=== PATIENT | female | born 1985 | race Caucasian/White ===

== ENCOUNTER 2018-02-06 09:28 | Inpatient (IN) | payer OTHER ==
[2018-02-06] VITALS (11 sets, daily range): BP systolic 109–137; BP diastolic 60–77; PULSE 80–105; TEMP 98–98.4
[~2018-02-06] VITALS: Ht 165.1 cm; Wt 76.8 kg
[~2018-02-06 09:28] MED LIST: NO HOME MEDICATIONS
[2018-02-06] MEDS ORDERED: PRENATAL (09:40)
[2018-02-06 10:14] LABS: BASO # 0.1 (0.0-0.2); BASO % 0.3 % (0.0-2.0); EOS % 0.2 % (0-4.0); GRAN # 16.7 (1.4-6.5); GRAN % 86.7 % (42.2-75.2); LYMPH # 1.7 (1.2-3.4); LYMPH % 8.7 % (20.0-51.0); MEAN CELL VOLUME 88 fl (80.0-100.0); MEAN CORPUSCULAR HEMOGLOBIN 29 pg (27.0-31.0); MEAN CORPUSCULAR HGB CONC 32 g/dl (33.0-37.0); MEAN PLATELET VOLUME 10.6 fl (7.4-10.4); MONO # 0.7 (0.1-0.6); MONO % 3.6 % (1.7-9.3); PLATELET COUNT 258 K/mm3 (130-400); RED BLOOD COUNT 3.85 M/mm3 (4.10-5.30); REDCELL DISTRIBUTION WIDTH-CV 13.7 % (11.5-14.5)
[2018-02-06 10:30] LABS: TRICYCLIC ANTIDEPRESS URINE NEGATIVE
[2018-02-07 08:20] VITALS: BP 123/71; PULSE 65; TEMP 98.1
[2018-02-07 08:38] VITALS: BP 123/71; PULSE 65; TEMP 98.1
[2018-02-07] MEDS ORDERED: IBU600 MG PO (09:23)
[2018-02-07 13:01] VITALS: BP 125/83; PULSE 75; TEMP 98.5
== END 2018-02-07 14:40 | disposition home or self-care (01) | DRG 807 ==
LOC: LDRO 09:28 → OB 09:41
PROVIDERS: Obstetrics & Gynecology
PROC: 10E0XZZ Delivery of Products of Conception, External Approach (ICD-10-PCS; principal; 2018-02-06)
PROC: 0W8NXZZ Division of Female Perineum, External Approach (ICD-10-PCS; 2018-02-06)
PROC: 0UQMXZZ Repair Vulva, External Approach (ICD-10-PCS; 2018-02-06)
DX: O70.0 First degree perineal laceration during delivery (principal); Z37.0 Single live birth; Z3A.39 39 weeks gestation of pregnancy
CPT/HCPCS: J2590; J7120